=== PATIENT | female | born 1990 | race Caucasian/White ===

== ENCOUNTER 2017-04-28 16:14 | Emergency (ER) | payer OTHER ==
[2017-04-28 17:20] VITALS: BP 104/68
[2017-04-28] MEDS ORDERED: Ondansetron ODT TAB* 4 MG PO ONE ×2 (17:25→17:53)
--- NOTE | 2017-04-28 17:28 | UC ---
Throat Pain/Nasal Regan HPI - HPI Summary HPI Summary: patient complaining of WEAVER, sore throat, N/V/D, body aches - History of Current Complaint Chief Complaint: UCRespiratory Stated Complaint: VOMITING, CHILLS, FATIGUE, HEADACHE Time Seen by Provider: 04/28/17 17:00 Hx Obtained From: Patient Hx Last Menstrual Period: IUD ?: No Onset/Duration: Sudden Onset, Lasting Days Severity: Moderate Cough: Nonproductive Associated Signs & Symptoms: Positive: Dysphagia, Hoarseness, Sinus Discomfort, Fever, Vomiting - Allergies/Home Medications Allergies/Adverse Reactions: Allergies Allergy/AdvReac Type Severity Reaction Status Date / Time No Known Allergies Allergy Verified 04/28/17 17:10 Home Medications: Home Medications Iud 04/28/17 [History] Sertraline* [Zoloft*] 25 mg BID 04/28/17 [History Confirmed 04/28/17] PMH/Surg Hx/FS Hx/Imm Hx Previously Healthy: Yes - Surgical History Surgical History: None - Family History Known Family History: Negative: Hypertension - Social History Alcohol Use: Occasionally Alcohol Amount: weekends Substance Use Type: None Smoking Status (MU): Current Every Day Smoker Type: Cigarettes Amount Used/How Often: 1 PPD Length of Time of Smoking/Using Tobacco: 4-5 YRS Have You Smoked in the Last Year: Yes Household Exposure Type: Cigarettes - Immunization History Most Recent Influenza Vaccination: no 2017 Review of Systems Constitutional: Fever, Fatigue Skin: Negative Eyes: Negative ENT: Sore Throat, Nasal Discharge, Sinus Congestion Respiratory: Cough Cardiovascular: Negative Gastrointestinal: Vomiting, Diarrhea, Nausea Genitourinary: Negative Motor: Negative Neurovascular: Negative Musculoskeletal: Negative, Myalgia Psychological: Anxious Is Patient Immunocompromised?: No All Other Systems Reviewed And Are Negative: Yes Physical Exam Triage Information Reviewed: Yes Appearance: Well-Nourished, Ill-Appearing, Pain Distress Vital Signs: Initial Vital Signs Temp 97.8 F 04/28/17 17:12 Pulse 84 04/28/17 17:12 Resp 16 04/28/17 17:12 BP 104/68 04/28/17 17:12 Pulse Ox 99 04/28/17 17:12 Vital Signs Reviewed: Yes Eye Exam: Normal ENT: Positive: Pharyngeal erythema, Nasal congestion, TM red, Sinus tenderness Dental Exam: Normal Neck exam: Normal Neck: Positive: Supple, Nontender, No Lymphadenopathy Respiratory Exam: Normal Respiratory: Positive: Chest non-tender, Lungs clear, Normal breath sounds Cardiovascular Exam: Normal Cardiovascular: Positive: RRR, No Murmur, Pulses Normal Abdominal Exam: Normal Abdomen Description: Positive: Nontender, No Organomegaly, Soft Bowel Sounds: Positive: Present Musculoskeletal Exam: Normal Musculoskeletal: Positive: Strength Intact, ROM Intact, No Edema Neurological Exam: Normal Neurological: Positive: Alert, Muscle Tone Normal Psychological Exam: Normal Skin Exam: Normal Throat Pain/Nasal Course/Dx - Course Course Of Treatment: hx obtained, exam performed ,meds reviewed, zofran given, tested for flu - Differential Dx/Diagnosis Differential Diagnosis/HQI/PQRI: Otitis Media, Pharyngitis, Sinusitis, URI Provider Diagnoses: gastroenteritis. myalgia. Headache Discharge - Discharge Plan Condition: Stable Disposition: HOME Prescriptions: Ondansetron ODT TAB* [Zofran 4 MG Odt TAB*] 4 mg PO Q8H PRN #12 tab.odt PRN Reason: Nausea Forms: *Work Release Referrals: No Primary Care Phys,NOPCP [Primary Care Provider] - Additional Instructions: 1. get plenty of rest 2. Increase fluid intake 3. Take the zofran every 8 hours for the next 2 days. 4. FOllow up with any increase in symptoms.
== END 2017-04-28 18:05 | disposition home or self-care (01) ==
LOC: UCCORT 16:14
DX: K52.9 Noninfective gastroenteritis and colitis, unspecified (principal); M79.1 Myalgia; R51 Headache; Z72.89 Other problems related to lifestyle; Z87.891 Personal history of nicotine dependence
CPT/HCPCS: 87502; 99212; A9270-GY; G0463

== ENCOUNTER 2018-11-20 20:50 | Emergency (ER) | payer OTHER ==
[2018-11-20 21:01] VITALS: BP 129/72
[2018-11-20] MEDS ORDERED: Ibuprofen TAB* 600 MG PO ONE (21:08)
--- NOTE | 2018-11-20 21:21 | UC ---
Lower Extremity/Ankle HPI - HPI Summary HPI Summary: Pt was playing softball and another player ran into the pt and pt's ankle turned out and the other player landed on her right ankle - History of Current Complaint Chief Complaint: UCLowerExtremity Stated Complaint: RIGHT ANKLE INJURY Time Seen by Provider: 11/20/18 20:51 Hx Obtained From: Patient Hx Last Menstrual Period: Depo ?: No Onset/Duration: Sudden Onset, Lasting Minutes Severity Initially: Severe Severity Currently: Severe Pain Intensity: 8 - Allergies/Home Medications Allergies/Adverse Reactions: Allergies Allergy/AdvReac Type Severity Reaction Status Date / Time No Known Allergies Allergy Verified 11/20/18 21:01 Home Medications: Home Medications Omeprazole 20 mg PO DAILY 11/20/18 [History Confirmed 11/20/18] Venlafaxine EXT RELEASE CAP* [Effexor Xr CAP*] 37.5 mg PO DAILY 11/20/18 [ History Confirmed 11/20/18] methylPREDNISolone ACETATE 40* [Depo-Medrol 40 MG/1ML VIAL*] 40 mg .SEE ORDER SEE INSTRUCTIONS 11/20/18 [History Confirmed 11/20/18] PMH/Surg Hx/FS Hx/Imm Hx Previously Healthy: Yes - Surgical History Surgical History: None - Family History Known Family History: Negative: Hypertension - Social History Alcohol Use: Occasionally Alcohol Amount: weekends Substance Use Type: None Smoking Status (MU): Current Every Day Smoker Type: Cigarettes Amount Used/How Often: 1 PPD Length of Time of Smoking/Using Tobacco: 4-5 YRS Have You Smoked in the Last Year: Yes Household Exposure Type: Cigarettes - Immunization History Most Recent Influenza Vaccination: no 2016 Review of Systems All Other Systems Reviewed And Are Negative: Yes Musculoskeletal: Positive: Arthralgia, Edema, Myalgia Physical Exam Triage Information Reviewed: Yes Appearance: Well-Appearing, Well-Nourished, Pain Distress Vital Signs: Initial Vital Signs Temp 98.3 F 11/20/18 20:58 Pulse 94 11/20/18 20:58 Resp 18 11/20/18 20:58 BP 129/72 11/20/18 20:58 Pulse Ox 99 11/20/18 20:58 Vital Signs Reviewed: Yes Eye Exam: Normal ENT Exam: Normal Neck exam: Normal Respiratory Exam: Normal Respiratory: Positive: Chest non-tender, Lungs clear, Normal breath sounds Cardiovascular Exam: Normal Cardiovascular: Positive: RRR, No Murmur, Pulses Normal Abdominal Exam: Normal Musculoskeletal: Positive: Strength Limited @ - cant bear weight, ROM limited in eversion and inversion, Plantar and dorsi flexion, Edema @ - mild Neurological Exam: Normal Psychological Exam: Normal Skin Exam: Normal Lower Extremity Course/Dx - Course Course Of Treatment: hx obtained, exam performed ,meds reviewed, xray positive for fibular fracture, awaiting the radiologist read tomorrow, CAM boot, crutches and santiago wrap. referred to orthopedics. - Differential Dx/Diagnosis Differential Diagnosis/HQI/PQRI: Contusion, Dislocation, Fracture (Closed), Sprain, Strain Provider Diagnosis: Right fibular fracture Discharge - Sign-Out/Discharge Documenting (check all that apply): Patient Departure All imaging exams completed and their final reports reviewed: No - Discharge Plan Condition: Stable Disposition: HOME Patient Education Materials: Leg Fracture (ED) Referrals: Emma Montes De Oca [Primary Care Provider] - Additional Instructions: 1. use the cam boot and crutches till seen by orthopedics 2. Call to get an appointment tomorrow 3. Continue with ibuprofen or tylenol for pain and swelling 4. Elevate foot at rest. - Billing Disposition and Condition Condition: STABLE Disposition: Home
--- NOTE | 2018-11-21 07:53 | UC ---
- Progress Note Progress Note: Confirmed xray read--fracture of distal fibula. Patient is in CAM walker and was referred to ortho. Please notify patient that fracture was confirmed, and ensure has ortho follow up. Course/Dx - Diagnoses Provider Diagnoses: Right fibular fracture Discharge - Sign-Out/Discharge Documenting (check all that apply): Patient Departure All imaging exams completed and their final reports reviewed: Yes - Discharge Plan Condition: Stable Disposition: HOME Patient Education Materials: Leg Fracture (ED) Referrals: Emma Montes De Oca [Primary Care Provider] - Additional Instructions: 1. use the cam boot and crutches till seen by orthopedics 2. Call to get an appointment tomorrow 3. Continue with ibuprofen or tylenol for pain and swelling 4. Elevate foot at rest. - Billing Disposition and Condition Condition: STABLE Disposition: Home
== END 2018-11-20 21:41 | disposition home or self-care (01) ==
LOC: UCCORT 20:50
DX: S82.831A Other fracture of upper and lower end of right fibula, initial encounter for closed fracture (principal); W03.XXXA Other fall on same level due to collision with another person, initial encounter; Y93.64 Activity, baseball; Y92.9 Unspecified place or not applicable; F17.210 Nicotine dependence, cigarettes, uncomplicated
CPT/HCPCS: 99213; A9270-GY; G0463

== ENCOUNTER 2019-05-29 10:19 | Emergency (ER) | payer OTHER ==
[2019-05-29 12:30] VITALS: BP 130/77
--- NOTE | 2019-05-29 12:45 | UC ---
FLU HPI - HPI Summary HPI Summary: 28 year old female with fli like illness. Fever (tmax "101 point something"), runny nose, PND, productive cough, nausea without vomiting, "bubbley guts" abdominal discomfort, four episodes of diarrhea, myalgias, chills, and fatigue for one day. Partner tested positive for influenza B and patient had similar symptoms. She states she needs flu testing for work. - History of Current Complaint Chief Complaint: UCGeneralIllness Stated Complaint: FEVER, NAUSEA, ACHY Time Seen by Provider: 05/29/19 12:30 Hx Obtained From: Patient Hx Last Menstrual Period: Depo-Provera ?: No Pain Intensity: 0 - Allergy/Home Medications Allergies/Adverse Reactions: Allergies Allergy/AdvReac Type Severity Reaction Status Date / Time No Known Allergies Allergy Verified 05/29/19 12:25 Home Medications: Home Medications ALPRAZolam TAB* [Xanax TAB*] 0.5 mg PO TID PRN 05/25/15 [History Confirmed 05/29] Omeprazole 20 mg PO DAILY 11/20/18 [History Confirmed 05/29/19] Acetaminophen [Acetaminophen Extra Strength] 1,000 mg PO Q6H PRN 05/29/19 [ History Confirmed 05/29/19] Sertraline* [Zoloft*] 25 mg PO DAILY 05/29/19 [History Confirmed 05/29/19] Vitamin THERAPEUTIC TAB* [Theragran TAB*] 1 tab PO DAILY 05/29/19 [History Confirmed 05/29/19] medroxyPROGESTERone ACETATE* [DEPO-Provera] 150 mg IM Q90D 05/29/19 [History Confirmed 05/29/19] PMH/Surg Hx/FS Hx/Imm Hx Previously Healthy: Yes GI/ History: Gastroesophageal Reflux Psychological History: Anxiety, Depression - Surgical History Surgical History: None - Family History Known Family History: Positive: Diabetes Negative: Hypertension - Social History Occupation: Employed Full-time Alcohol Use: Occasionally Alcohol Amount: weekends Substance Use Type: None Smoking Status (MU): Heavy Every Day Tobacco Smoker Type: Cigarettes Amount Used/How Often: 1 PPD Length of Time of Smoking/Using Tobacco: 4-5 YRS Have You Smoked in the Last Year: Yes Household Exposure Type: Cigarettes - Immunization History Most Recent Influenza Vaccination: no 2017 Review of Systems All Other Systems Reviewed And Are Negative: Yes Constitutional: Positive: Fever, Chills, Fatigue ENT: Positive: Nasal Discharge Respiratory: Positive: Cough Musculoskeletal: Positive: Myalgia Neurological/Mental Status: Positive: Headache Physical Exam Triage Information Reviewed: Yes Appearance: Well-Appearing Vital Signs: Initial Vital Signs Temp 98.3 F 05/29/19 12:22 Pulse 96 05/29/19 12:22 Resp 18 05/29/19 12:22 BP 130/77 05/29/19 12:22 Pulse Ox 100 05/29/19 12:22 Vital Signs Reviewed: Yes Eye Exam: Normal ENT Exam: Normal Dental Exam: Normal Neck exam: Normal Neck: Positive: 1 Respiratory Exam: Normal Cardiovascular Exam: Normal Musculoskeletal Exam: Normal Neurological Exam: Normal Psychological Exam: Normal Skin Exam: Normal Flu Course/Dx - Course Course Of Treatment: (+) infuenza contact and with influenza Sx -- dx at this tie clinically but she declined tamiflu and note for work given and advised increase fluids - Differential Dx/Diagnosis Differential Diagnosis/HQI/PQRI: Broncholiolitis, Influenza, Upper Respiratory Infection Provider Diagnosis: Influenza Discharge ED - Sign-Out/Discharge Documenting (check all that apply): Patient Departure All imaging exams completed and their final reports reviewed: No Studies - Discharge Plan Condition: Good Disposition: HOME Patient Education Materials: Influenza (DC) Forms: *Work Release Referrals: Rachel Patel MD [Primary Care Provider] - 3 Days - Billing Disposition and Condition Condition: GOOD Disposition: Home
[2019-05-29 12:59] LABS: Influenza A Molecular Negative (Negative); Influenza B Molecular Negative (Negative)
== END 2019-05-29 13:10 | disposition home or self-care (01) ==
LOC: UCCORT 10:19
DX: J11.1 Influenza due to unidentified influenza virus with other respiratory manifestations (principal); K21.9 Gastro-esophageal reflux disease without esophagitis; F41.9 Anxiety disorder, unspecified; F32.9 Major depressive disorder, single episode, unspecified; F17.210 Nicotine dependence, cigarettes, uncomplicated; Z79.899 Other long term (current) drug therapy
CPT/HCPCS: 99211; G0463